=== PATIENT | female | born 1990 | race Caucasian/White ===

== ENCOUNTER 2016-11-20 04:30 | Emergency (ER) | payer OTHER ==
[~2016-11-20] VITALS: Ht 144.8 cm; Wt 54.4 kg
[~2016-11-20 04:30] MED LIST: [UNRECOGNIZED DRUG - REMARK]
--- NOTE | 2016-11-20 04:30 | NUR ---
Patient was BIBA and ambulated to bed 04.
[2016-11-20 04:42] VITALS: BP 131/70
--- NOTE | 2016-11-20 04:43 | NUR ---
Dr. Hernandez evaluating patient at bedside.
[2016-11-20 04:50] VITALS: BP 131/70
[2016-11-20] MEDS ORDERED: NACL 0.9% 1,000 ML IV SCH (04:50)
--- NOTE | 2016-11-20 04:50 | NUR ---
PATIENT ADALBERTO PRESENTS TO ED WITH C/O FEELING LIKE SHE IS FLOATING S/P METH USE . PT STATES SHE IS UNSURE WHETHER THE FEELING IS FROM METH OR NOT BECAUSE SHE HAS NEVER FELT THIS WAY AFTER METH USE BEFORE . DENIES N/V/D; SKIN IS PINK/WARM/DRY; AAOX4 WITH EVEN AND STEADY GAIT; LUNGS CLEAR BL; HR EVEN AND REGULAR; PT DENIES ANY FEVER, CP, SOB, OR COUGH AT THIS TIME; PATIENT STATES PAIN OF 0/10 AT THIS TIME; VSS; PATIENT POSITIONED FOR COMFORT; HOB ELEVATED; BEDRAILS UP X2; BED DOWN. ER MD MADE AWARE OF PT STATUS.
--- NOTE | 2016-11-20 04:58 | NUR ---
Patient does not wish to proceed with Medications AND IV recommended by DR. SIERRA. Patient given information related to possible complications, up to and including , which could occur as a result from refusing treatment/test at this time. Patient verbalizes understanding of risks involved from refusing treatment/test.
--- NOTE | 2016-11-20 05:20 | NUR ---
BERNARDA at bedside to draw blood.
--- NOTE | 2016-11-20 05:29 | NUR ---
Patient ambulated to the bathroom.
--- NOTE | 2016-11-20 06:30 | NUR ---
Patient does not wish to proceed with medical care recommended by DR. SIERRA. Patient given information related to possible complications, up to and including , which could occur as a result of leaving hospital at this time. Patient verbalizes understanding of risks involved leaving against medical advice. Patient has signed AMA form.
== END 2016-11-20 06:30 | disposition left against medical advice (07) ==
LOC: MED 04:30
DX: F15.129 Other stimulant abuse with intoxication, unspecified (principal); F20.3 Undifferentiated schizophrenia; Z59.0 Homelessness
CPT/HCPCS: 36415; 80053; 80305; 81001; 81025; 82150; 83690; 85025; 87086; 99284; G0482

== ENCOUNTER 2016-11-20 09:44 | Emergency (ER) | payer OTHER ==
[~2016-11-20] VITALS: Ht 144.8 cm; Wt 49.9 kg
--- NOTE | 2016-11-20 09:50 | NUR ---
PATIENT TO ER BED 3.
[2016-11-20 10:03] VITALS: BP 127/92
--- NOTE | 2016-11-20 10:03 | NUR ---
Patient being evaluated by physician at bedside.
--- NOTE | 2016-11-20 10:05 | NUR ---
PATIENT ELOPED FROM FACILITY. DISCHARGE INSTRUCTIONS NOT GIVEN TO PATIENT. DR. SALAS NOTIFIED.
== END 2016-11-20 10:05 | disposition left against medical advice (07) ==
LOC: MED 09:44
DX: Z53.20 Procedure and treatment not carried out because of patient's decision for unspecified reasons (principal)

== ENCOUNTER 2016-11-20 11:40 | Emergency (ER) | payer OTHER ==
[~2016-11-20] VITALS: Ht 144.8 cm; Wt 49.9 kg
[2016-11-20 12:07] VITALS: BP 141/91
[2016-11-20 12:12] VITALS: BP 141/91
--- NOTE | 2016-11-20 12:14 | NUR ---
Pt taken to bed 7. Pillow and warm blanket provided per patient request.
--- NOTE | 2016-11-20 12:17 | NUR ---
Patient being evaluated by physician at bedside.
[2016-11-20] MEDS ORDERED: LORazepam 1 MG TAB PO ONE (12:20)
--- NOTE | 2016-11-20 12:30 | NUR ---
26/F presents to the ED for evaluation of bilateral foot pain and dizziness. Patient is very agitated and yelling. Pt states "My body feels numb." Pt was seen here during the night. Patient admits to using meth approximately 24 hours ago. Patient is agitated, uncooperative and is able to follow commands but will refuse.
--- NOTE | 2016-11-20 12:33 | NUR ---
Pt refusing to take PO Ativan. Pt states "I don't want it." Dr. Kraus made aware.
[2016-11-20] MEDS ORDERED: POTASSIUM CHLORIDE 10 MEQ TABER PO ONE (13:30)
--- NOTE | 2016-11-20 13:38 | NUR ---
Marlen sullivan in [facility] - 11/20/16 at 1419 by ALDO Chart checked and completed. The patient's care was reviewed and supervised by Otis Callejas RN.
--- NOTE | 2016-11-20 13:46 | NUR ---
Patient refused to take PO potassium. Pt states "I dont' like medications in my body."
--- NOTE | 2016-11-20 13:48 | NUR ---
PATIENT ELOPED WITHOUT DISCHARGE INSTRUCTIONS.ERMD MADE AWARE
--- NOTE | 2016-11-20 13:48 | NUR ---
Chart checked and completed. The patient's care was reviewed and supervised by Otis Callejas RN.
--- NOTE | 2016-11-20 13:48 | NUR ---
PATIENT ELOPED FROM FACILITY. DISCHARGE INSTRUCTIONS NOT GIVEN TO PATIENT. DR. SALAS NOTIFIED.
== END 2016-11-20 13:48 | disposition left against medical advice (07) ==
LOC: MED 11:40
DX: T43.621A Poisoning by amphetamines, accidental (unintentional), initial encounter (principal); R53.1 Weakness; Y92.89 Other specified places as the place of occurrence of the external cause